=== PATIENT | female | born 1945 | race Caucasian/White ===

== ENCOUNTER 2018-07-08 12:58 | Outpatient (CLI) | payer MEDICARE, OTHER ==
--- NOTE | 2018-07-08 13:25 | RAD ---
PA AND LATERAL CHEST: History: Dyspnea. FINDINGS: The heart size is normal. The lungs are well expanded without focal areas of consolidation, pneumotho races, or pleural effusions. IMPRESSION: No acute process. POS: [facility]
== END 2018-07-08 12:59 | disposition home or self-care (01) ==
LOC: RAD 12:58
PROVIDERS: ATTEND Internal Medicine Critical Care Medicine
DX: R06.00 Dyspnea, unspecified (principal)
CPT/HCPCS: 71046

== ENCOUNTER 2018-09-22 12:39 | Outpatient (CLI) | payer MEDICARE, OTHER ==
[2018-09-22 13:04] LABS: Actual Bicarbonate (HCO3a) 21.3 mEq/L (22-28); Analyzer IN Cardio OR; CO2 Tension 32.5 mmHg (35.0-45.0); Calcium, Ionized 1.21 mmol/L (1.12-1.30); Carboxyhemoglobin (COHb) 0.7 gm% (0.0-3.0); Hemoglobin (Hb) 15.5 g/dL (12.0-16.0); Potassium - ABG Lab 4.51 mmol/L (3.70-5.30); pH, Arterial 7.43 (7.35-7.45)
[2018-09-22 13:07] LABS: ALV-art Gradient 35.105 (0-20)
== END 2018-09-22 12:40 | disposition home or self-care (01) ==
LOC: CP 12:39
PROVIDERS: ATTEND Internal Medicine Critical Care Medicine
DX: J44.9 Chronic obstructive pulmonary disease, unspecified (principal)
CPT/HCPCS: 82805; 94060; 94727; 94729

== ENCOUNTER 2018-12-09 09:21 | Outpatient (CLI) | payer MEDICARE ==
--- NOTE | 2018-12-09 10:10 | BD ---
DEXA BONE DENSITY EXAM: HISTORY: A 73-year-old postmenopausal female for screening. FINDINGS: Lumbar Spine: BMD (g/cm2) L1 0.996 T-Score: 0.1 L2 0.953 T-Score: -0.7 L3 1.073 T-Score: -0.1 L4 1.097 T-Score: 0.3 L1-L4 1.031 T-Score: -0.1 Femoral Neck: 0.632 T-Score: -2.0 Total Femur: 1.051 T-Score: 0.9 Impression: Osteopenia. This patient has a 10-year WHO fracture risk of a major osteoporotic fracture of 11% and of a hip fracture of 2.7%. POS: [facility]
== END 2018-12-09 09:22 | disposition home or self-care (01) ==
LOC: BICMAMMO 09:21
PROVIDERS: ATTEND Nurse Practitioner Adult Health
DX: Z78.0 Asymptomatic menopausal state (principal); M85.859 Other specified disorders of bone density and structure, unspecified thigh
CPT/HCPCS: 77080